=== PATIENT | male | born 1985 | race Caucasian/White ===

== ENCOUNTER 2020-06-23 14:16 | Inpatient (IN) ==
[2020-06-23] MEDS ORDERED: ACETAMINOPHEN 325 MG TABLET PO PRN (16:27)
[2020-06-23] MEDS ORDERED: DEXTROSE 50% 25 GM/50 ML VIAL IV PRN (16:27)
[2020-06-23] MEDS ORDERED: GLUCAGON 1 MG VIAL IM PRN (16:27)
[2020-06-23 17:01] LABS: Basophils # 0.1 10*3/uL (0.0-0.2); Basophils % 0.6 % (0.0-0.8); Eosinophils # 0.1 10*3/uL (0.0-0.87); Eosinophils % 0.4 % (0.00-10.9); Hematocrit 40.6 VOL% (42.0-52.0); Hemoglobin 14.5 GM/DL (14.0-18.0); Immature Granulocytes % 0.4 %; Immature Granulocytes Absolute 0.05 #; Lymphocytes # 1.9 10*3/uL (1.4-4.0); Lymphocytes % 15.2 % (21.2-54.2); Mean Corpuscular HGB Conc 35.7 GM/DL (32-36); Mean Corpuscular Volume 90.4 FL (87-102); Mean Platelet Volume 10.7 FL (9.6-12.0); Monocytes % 10.4 % (1.7-12.7); Platelet Count 225 T/CUMM (130-400); Red Blood Count 4.49 MC/CUMM (3.8-5.5); Red Cell Distribution Width 12.2 % (9.3-17.3); White Blood Count 12.7 T/CUMM (4-12)
[2020-06-23] MEDS ORDERED: chlordiazePOXIDE 25 MG CAPSULE PO PRN (17:15)
[2020-06-23 17:18] LABS: Calcium 9.7 MG/DL (8.5-10.1); Osmolality,Calculated 285.7 MOS/KG (273-304); Potassium 3.7 MMOL/L (3.5-5.1)
[2020-06-23] MEDS ORDERED: MAGNESIUM SULF RIDER 4 GM in PREMIX 1 EACH IV PRN (17:25)
[2020-06-23] MEDS ORDERED: MAGNESIUM SULF RIDER 2 GM in PREMIX 1 EACH IV PRN (17:25)
[2020-06-23 17:27] LABS: PT Patient Result 11.1 SECS (9.8-11.9)
[2020-06-23] MEDS ORDERED: ZALEPLON 5 MG CAPSULE PO PRN (17:28)
[2020-06-23] MEDS: ONDANSETRON 4 MG/2 ML VIAL IV PRN (17:43)
[2020-06-23] MEDS: NICOTINE 14 MG/24 HR PATCH TRANSDERM SCH (18:18)
[2020-06-23] MEDS: SODIUM CHLORIDE 0.9% 1,000 ML IV SCH (18:18)
[2020-06-23 19:52] LABS: Bilirubin,Urine Negative (Negative); Blood, Urine Negative (Negative); Glucose,Urine (UA) Negative (Negative); Ketones,Urine Negative (Negative); Nitrite,Urine Negative (Negative); Protein,Urine Negative; RBC,Urine 3 /HPF (0-4); Squamous Epithelial Cell,Urine Occasional /HPF (0-10); Urine Appearance CLEAR (Clear); Urine Color Straw (Yellow); Urine Specific Gravity 1.024 (1.001-1.035); Urine Urobilinogen < 2.0 EU/DL (0.2-1.0); WBC,Urine <1 /HPF (0-6)
[2020-06-23 19:55] LABS: Barbiturates Screen,Urine Negative (Negative); Benzodiazepines Screen,Urine Negative (Negative); Cannabinoid Screen,Urine Negative (Negative); Opiate Screen,Urine Negative (Negative); Phencyclidine Screen,Urine Negative (Negative)
[2020-06-23] MEDS: PANTOPRAZOLE 40 MG VIAL IV SCH (20:28)
[2020-06-24] MEDS: ONDANSETRON 4 MG/2 ML VIAL IV PRN ×2 (02:34→18:08)
[2020-06-24] MEDS: SODIUM CHLORIDE 0.9% 1,000 ML IV SCH ×2 (03:55→12:20)
[2020-06-24 06:25] LABS: Basophils % 0.4 % (0.0-0.8); Eosinophils # 0.1 10*3/uL (0.0-0.87); Eosinophils % 0.7 % (0.00-10.9); Hematocrit 28.1 VOL% (42.0-52.0); Immature Granulocytes % 0.8 %; Immature Granulocytes Absolute 0.08 #; Lymphocytes # 2.3 10*3/uL (1.4-4.0); Lymphocytes % 22.5 % (21.2-54.2); Mean Corpuscular HGB Conc 35.6 GM/DL (32-36); Mean Corpuscular Volume 92.1 FL (87-102); Mean Platelet Volume 10.9 FL (9.6-12.0); Monocytes % 8.1 % (1.7-12.7); Neutrophils % 67.5 % (38.7-73.9); Platelet Count 178 T/CUMM (130-400); Red Blood Count 3.05 MC/CUMM (3.8-5.5); Red Cell Distribution Width 12.2 % (9.3-17.3); White Blood Count 10.2 T/CUMM (4-12)
[2020-06-24 06:42] LABS: PT Patient Result 10.9 SECS (9.8-11.9)
[2020-06-24 06:49] LABS: Calcium 8.4 MG/DL (8.5-10.1); Osmolality,Calculated 291.5 MOS/KG (273-304); Potassium 3.8 MMOL/L (3.5-5.1); Risk Ratio 3.83; Thyroid Stimulating Hormone 1.23 uIU/ml (0.358-3.74); VLDL CHOLESTEROL 55.8 MG/DL
[2020-06-24] MEDS: PANTOPRAZOLE 40 MG VIAL IV SCH ×2 (10:10→20:31)
[2020-06-24] MEDS: FOLIC ACID 1 MG TABLET PO SCH (10:11)
[2020-06-24] MEDS: THIAMINE 100 MG TABLET PO SCH (10:11)
[2020-06-24] MEDS: MULTIVITAMIN (CENTRUM) TABLET PO SCH (10:11)
[2020-06-24] MEDS: NICOTINE 14 MG/24 HR PATCH TRANSDERM SCH (10:19)
[2020-06-24 11:29] LABS: Hematocrit 23.4 VOL% (42.0-52.0); Hemoglobin 8.1 GM/DL (14.0-18.0)
[2020-06-24] MEDS ORDERED: SODIUM CHLORIDE 0.9% 1,000 ML IV PRN (12:22)
[2020-06-24 13:11] LABS: Folate 10.9 NG/ML (5.4-24.0)
[2020-06-24] MEDS: OCTREOTIDE 500 MCG in SODIUM CHLORIDE 0.9% 100 ML IV SCH (19:22)
[2020-06-24] MEDS: MELATONIN 3 MG TABLET PO SCH (20:31)
[2020-06-25] MEDS: OCTREOTIDE 500 MCG in SODIUM CHLORIDE 0.9% 100 ML IV SCH (05:05)
[2020-06-25 06:13] LABS: Hematocrit 28.6 VOL% (42.0-52.0)
[2020-06-25 06:14] LABS: Hemoglobin 10.2 GM/DL (14.0-18.0)
[2020-06-25 06:18] LABS: Basophils # 0.1 10*3/uL (0.0-0.2); Basophils % 0.7 % (0.0-0.8); Eosinophils # 0.2 10*3/uL (0.0-0.87); Eosinophils % 2.1 % (0.00-10.9); Hematocrit 28.8 VOL% (42.0-52.0); Hemoglobin 10.2 GM/DL (14.0-18.0); Immature Granulocytes % 0.7 %; Immature Granulocytes Absolute 0.06 #; Lymphocytes # 2.3 10*3/uL (1.4-4.0); Lymphocytes % 26.9 % (21.2-54.2); Mean Corpuscular HGB Conc 35.4 GM/DL (32-36); Mean Corpuscular Volume 86.7 FL (87-102); Mean Platelet Volume 11.1 FL (9.6-12.0); Neutrophils % 62.6 % (38.7-73.9); Red Blood Count 3.32 MC/CUMM (3.8-5.5); Red Cell Distribution Width 14.4 % (9.3-17.3); White Blood Count 8.5 T/CUMM (4-12)
[2020-06-25 06:19] LABS: Platelet Count 125 T/CUMM (130-400)
[2020-06-25 06:41] LABS: Calcium 7.5 MG/DL (8.5-10.1); Osmolality,Calculated 290.4 MOS/KG (273-304)
[2020-06-25 06:42] LABS: Hypochromasia 1+; Microcytosis 1+; Ovalocytes Slight; Platelet Estimate Normal
[2020-06-25] MEDS ORDERED: propofoL 200 MG/20 ML VIAL IV ONE ×3 (07:27)
[2020-06-25] MEDS ORDERED: LIDOCAINE 2% 5 ML VIAL ONE (07:27)
[2020-06-25] MEDS: THIAMINE 100 MG TABLET PO SCH (09:13)
[2020-06-25] MEDS: PANTOPRAZOLE 40 MG VIAL IV SCH ×2 (09:13→20:19)
[2020-06-25] MEDS: MULTIVITAMIN (CENTRUM) TABLET PO SCH (09:13)
[2020-06-25] MEDS: FOLIC ACID 1 MG TABLET PO SCH (09:13)
[2020-06-25] MEDS: NICOTINE 14 MG/24 HR PATCH TRANSDERM SCH (09:14)
[2020-06-25 14:36] LABS: Hematocrit 24.4 VOL% (42.0-52.0); Hemoglobin 8.8 GM/DL (14.0-18.0)
[2020-06-25] MEDS: SODIUM CHLORIDE 0.9% 1,000 ML IV SCH (20:15)
[2020-06-25] MEDS: MELATONIN 3 MG TABLET PO SCH (20:19)
[2020-06-26 05:58] LABS: Basophils % 0.5 % (0.0-0.8); Eosinophils # 0.2 10*3/uL (0.0-0.87); Eosinophils % 3.3 % (0.00-10.9); Hematocrit 24.6 VOL% (42.0-52.0); Hemoglobin 8.6 GM/DL (14.0-18.0); Immature Granulocytes % 0.5 %; Immature Granulocytes Absolute 0.03 #; Lymphocytes # 1.3 10*3/uL (1.4-4.0); Lymphocytes % 22.3 % (21.2-54.2); Mean Corpuscular Volume 88.2 FL (87-102); Mean Platelet Volume 11.4 FL (9.6-12.0); Monocytes % 7.4 % (1.7-12.7); Platelet Count 114 T/CUMM (130-400); Red Blood Count 2.79 MC/CUMM (3.8-5.5); Red Cell Distribution Width 14.4 % (9.3-17.3); White Blood Count 5.8 T/CUMM (4-12)
[2020-06-26 06:18] LABS: Hypochromasia 1+; Microcytosis 1+
[2020-06-26 06:26] LABS: Calcium 7.8 MG/DL (8.5-10.1); Osmolality,Calculated 283.1 MOS/KG (273-304); Potassium 3.7 MMOL/L (3.5-5.1)
[2020-06-26 07:37] VITALS: BP 108/63
[2020-06-26] MEDS: MULTIVITAMIN (CENTRUM) TABLET PO SCH (08:20)
[2020-06-26] MEDS: THIAMINE 100 MG TABLET PO SCH (08:20)
[2020-06-26] MEDS: NICOTINE 14 MG/24 HR PATCH TRANSDERM SCH (08:21)
[2020-06-26] MEDS: FOLIC ACID 1 MG TABLET PO SCH (08:21)
[2020-06-26] MEDS: PANTOPRAZOLE 40 MG VIAL IV SCH (08:24)
== END 2020-06-26 10:56 | disposition home or self-care (01) | DRG 369 ==
LOC: N.3E 16:07 → SUATTDRO 16:07
PROVIDERS: ADMIT Internal Medicine; ATTEND Internal Medicine